=== PATIENT | male | born 1960 | race Caucasian/White ===

== ENCOUNTER 2018-01-18 08:47 | Inpatient (IN) | payer OTHER, SELFPAY ==
[2018-01-12 13:02] VITALS: BMI 28.1
[2018-01-18] VITALS (13 sets, daily range): BP systolic 113–147; BP diastolic 63–94; PULSE 57–82; RESP 12–20; TEMP 35.8–36.7; O2SAT 68–100; BMI 29.2
--- NOTE | 2018-01-18 | DI.RAD.S_ITS ---
PROCEDURE: XR PELVIS 1-2V INDICATIONS: LEFT TOTAL HIP INTEROPERATIVE TECHNIQUE: Intra-operative view of the pelvis and hip acquired. COMPARISON: [facility], [place], XR PELVIS WITH BILATERAL LATERAL HIPS, 12/29/2017, 10:34. FINDINGS: Bones: Intraoperative devices prior to placement of arthroplasty prostheses are in expected positions. No fractures or suspicious bony lesions. Soft tissues: Overlying surgical retractors are present, along with other intraoperative changes. IMPRESSION: Intraoperative image obtained during the patient's left hip arthroplasty. Dictated by: Heber Lacy M.D. on 01/18/2018 at 12:33 Approved by: Heber Lacy M.D. on 01/18/2018 at 12:34
--- NOTE | 2018-01-18 09:06 | DI.RAD.S_ITS ---
PROCEDURE: XR HIP W PEL IF DONE LT 2V INDICATIONS: prosthesis placement TECHNIQUE: 2 views of the hip were acquired. COMPARISON: [facility], CR, XR PELVIS 1-2V, 01/18/2018, 12:28. FINDINGS: Expected postoperative changes are identified related to left hip arthroplasty. The metallic prostatic components appear to be appropriately seated without periprostatic fracture evident. Surgical changes are present related to previous right hip arthroplasty. No suspicious osseous lesions are evident. Soft tissue changes overlying the left hip are evident related to recent surgery there is a soft tissue air and edema no unexpected radiopaque foreign bodies are evident. However, the entire soft tissues of the left thigh/gluteal region are not included on this exam. Surgical drainage catheter is incidentally noted overlying the left hip. IMPRESSION: Expected post surgical changes related to left hip arthroplasty. Dictated by: Heber Lacy M.D. on 01/18/2018 at 13:26 Approved by: Heber Lacy M.D. on 01/18/2018 at 13:27
[2018-01-18] MEDS: PREGABALIN 75 MG CAPSULE PO (09:41)
[2018-01-18] MEDS: CELECOXIB 200 MG CAPSULE PO (09:41)
[2018-01-18] MEDS: ACETAMINOPHEN 325 MG TABLET 975 MG PO ×3 (09:41→20:28)
[2018-01-18] MEDS: LACTATED RINGERS 1,000 ML 42 ML IV ×2 (09:44→12:05)
[2018-01-18] MEDS: VANCOMYCIN 1,000 MG/200 ML FROZ.PIGGY 200 MG IV ×2 (10:10→21:58)
--- NOTE | 2018-01-18 10:51 | PM.PREOP ---
Pre-operative Note Interval Note Pre-op Check: Yes History & Physical Reviewed by Physician and Yes Exam Performed Changes: No
--- NOTE | 2018-01-18 10:51 | PM.OP.1 ---
Operative Date/Time/Diagnoses Date of procedure: 01/18/18 Time of procedure: 11:51 Pre-op diagnosis: left hip OA Post-op diagnosis: same Procedure & Clinicians Procedure: Left total hip arthroplasty Same procedure as scheduled: Yes Indications: The patient has had progressively worsening left hip pain with radiographic changes consistent with arthritis. Non-operative management has failed and the patient has requested total hip replacement. The risks, benefits and alternatives to surgery were discussed with the patient prior to proceeding. Risks discussed included, but were not limited to, failure to relieve pain, leg length discrepancy, dislocation, stiffness, infection, nerve damage, deep venous thrombosis, pulmonary embolism, stroke, coma, heart attack, permanent paralysis and , as well as the potential need for eventual revision of the prosthetic. Surgeon: Blanka Menendez Labor And Delivery Nurse: Carolina Peralta Anesthesia Type: General and Spinal Operative Notes Findings: severe left hip osteoarthritis, good stability Closure Type: primary Specimen(s): none sent Implants & Drains: [employer]endez [employer]hew R3 54 cup, anthology size 6 standard offset, +4 by 36 femoral head Oxinium Applied: drain(s) Estimated Blood Loss (mL): 250 Blood products transfused: none Procedure in detail: The patient was seen in the pre-operative area, where the patient identified the left hip as the operative site and this was marked with my initials. The patient received pre-operative antibiotics and was taken to the operating room and placed on the operative table in the right lateral decubitus position after satisfactory anesthesia. A time piece repairer out was performed. The left leg was prepared from the ankle to the iliac crest with ChloroPrep in the usual fashion and draped through sterile drapes. The hip was approached through an approximately 20 cm incision centered over the greater trochanter and curving gently posteriorly as it went proximally. This was carried sharply to the fascia parveen, which was divided and retracted with a self retaining retractor. The trochanteric bursa was excised with care being taken to avoid the sciatic nerve, which was identified and protected throughout the case. The short external rotators were incised and the capsulomuscular flap was raised and tagged for later repair. The hip was dislocated, and a femoral neck osteotomy performed approximately 15 mm above the lesser trochanter. Retractors were placed around the femur. The canal was opened with a box cutting osteotome, followed by a T handled reamer and a lateralizing reamer. The chili pepper broach was then used, followed by sequential broaching until there was good stability of the broach in the femur. Retractors were placed to expose the acetabulum. The labrum and central soft tissues were removed. Reaming was performed initially going up in 2 mm increments, then 1 mm increments until good bite was obtained with an odd sized reamer. The cup 1 mm larger than the last reamer was then inserted using the appropriate anteversion guides. A trial neutral liner was placed. The broach was placed in the canal. A trial head and neck were then placed and the hip relocated and checked for leg length and stability. An intraoperative film confirmed the component position and no evidence of fracture. The patient was stable in the position of sleep, of squatting, and could be put through a range of motion with 45 degrees internal rotation without dislocation. At 90 degrees flexion, internal rotation to 70 was possible before dislocation. This was felt to be satisfactory and the appropriate components were opened, and the trials were removed. The acetabular liner was impacted into position. The final stem was then impacted into the prepared femoral canal. A brief Betadine soak was performed while trialing with head options. The hip was meticulously irrigated with normal saline. Finally the femoral head was impacted onto the stem. The acetabulum was cleared of all material and the hip relocated one final time. The capsulomuscular flap was then repaired to the greater trochanter though an awl hole using the tag sutures. The short external rotators were repaired with a black braided nylon. A deep drain was placed and brought out anteriorly. The fascia parveen was closed with black braided nylon. The subcutaneous layer was closed with barbed sutures and SteriStrips. An Aquacel Ag dressing was applied and the patient was taken to recovery having tolerated the procedure well. Complications: none Condition: stable Disposition: Acute Care Plan for aftercare: The patient will be maintained on a standard total hip replacement protocol with weight bearing as tolerated and posterior hip precautions. The patient will receive Aspirin and sequential compression devices for DVT prophylaxis. The patient will be discharged home when safe for the home environment.
[2018-01-18] MEDS: CLINDAMYCIN 900 MG/50 ML PIGGYBACK 50 MG IV (11:15)
--- NOTE | 2018-01-18 11:40 | SUR.OPER ---
Lateral on padded OR bed. Gel axillary roll. Arms secured on padded armboard with pillow supporting top arm. Padded hip positioner braces x4 - anterior and posterior chest and pelvis. Additional gel pad used anterior pelvis. Gel pad under bottom leg from knee to foot and secured with tape over sheet.
[2018-01-18] MEDS: BUPIVACAINE LIPOSOME 266 MG/20 ML VIAL INJ (11:50)
[2018-01-18] MEDS: BUPIVACAINE 0.25% W/ EPI VIAL 50 ML INJ (11:50)
[2018-01-18] MEDS: SODIUM CHLORIDE IRRIG SOLUTION 250 ML, EPINEPHrine 1 MG IRR (11:55)
[2018-01-18] MEDS: LACTATED RINGERS 1,000 ML 125 ML IV (15:52)
--- NOTE | 2018-01-18 17:36 | PT.IIE ---
Current Diagnoses Unilateral primary osteoarthritis, left hip (01/18/18) Surgery Performed Operation Date: 01/18/18 10:45 Actual Procedures p Total Hip Arthroplasty(Left) - Blanka Menendez MD Surgical History (Last Updated 01/12/18 @ 13:31 by Ailyn Khan, RN) History of arthroplasty of right knee (Acute ~2013) History of total right hip arthroplasty (Acute 05/05/16) Hx of hernia repair (Acute) Hx of tonsillectomy (Acute) S/P foot surgery, left (Acute) Medical History (Last Updated 01/12/18 @ 13:31 by Ailyn Khan, SARAY) Afib (Acute) HTN (hypertension) (Acute) Physical Therapy Inpatient Evaluation/Re-Eval M1 PT/OT-IP Prior Functional Status Start: 01/18/18 17:04 Freq: NEEDED Status: Active Protocol: Document 01/18/18 17:04 EA (Rec: 01/18/18 17:33 EA [id number]) Medical Review Prior Functional Status Medical History Reviewed Yes Diet/Fluid Consistency Regular Communication Normal Mobility and Gait Ambulates more than two blocks independently with no AD used . No fall in the past six months Activities of Daily Living and IADL's Indep in all KILN TESTER Social History Household Members spouse Living Arrangements House Number of Floors (Floors) One Floor Number of Stairs To Enter/Railing? 7 steps to get in the house with railings to both sides Home Equipment Front Wheel Walker Straight Cane Raised Toilet Seat w/Armrests Additional Social History Comment On medical leave due to left foot surgery in 2016; patient reports cleared to FWB status after the removal of nails a months ago. M2 PT-IP Current Condition Start: 01/18/18 17:04 Freq: NEEDED Status: Active Protocol: Document 01/18/18 17:04 EA (Rec: 01/18/18 17:33 EA [id number]) Physical Therapy Current Condition Current Condition Evaluation Date 01/18/18 Treatment Diagnosis s/p L SARAH Onset Date 01/18/18 Precautions Posterior Hip Precautions No Hip Flexion > 90 degrees No Hip Internal Rotation No Hip Adduction Weight Bearing Status Weight Bearing Status Weight Bear as Tolerated M3 PT-IP Subjective Start: 01/18/18 17:04 Freq: NEEDED Status: Active Protocol: Document 01/18/18 17:04 EA (Rec: 01/18/18 17:33 EA [id number]) Subjective Physical Therapy Visit Type Type Initial Evaluation Visit Start Time 16:30 Visit Stop Time 17:10 Total Visit Minutes 40 Number of KILN TESTER Visits 0 Physical Therapy Visit Comments Patient Comments Patient reports he wants be independent in all functional transfers and mobility prior discharge. Pt agreeable to transfers to chair for dinner. Patient Goals Indep in all functional transfers and mobility Therapy Pain Assessment Pain When Pain Assessed At Rest Pain Present Pain Present Pain Reported Location Left Knee Intensity 3 Scale Used Numeric (1 - 10) Description Acute M4 PT-IP Mobility and Gait Start: 01/18/18 17:04 Freq: NEEDED Status: Active Protocol: Document 01/18/18 17:04 EA (Rec: 01/18/18 17:33 EA [id number]) PT-Bed Mobility Assessment Supine to Sit Supine to Sit Standby Assistance Sit to Supine Sit to Supine Standby Assistance Scooting Scooting to Edge of Bed Contact Guard Assistance PT-Transfer Assessment Sit to and From Stand Sit to and from Stand Contact Guard Assistance Transfers Transfer Destination Bed Chair Transfer Technique stepping Transfer Ability Level of Assist Contact Guard Assistance Gait Assessment Gait Gait Assistance Required: Standby Assistance Distance (Feet) 6 Assistive Devices Assistive Device Front Wheeled Walker Gait Deviations General Gait Pattern Antalgic Decreased Stride Length Factors Limiting Gait Function Factors Limiting Gait Function Decreased Activity Tolerance Decreased Strength Pain PT-Balance Assessment Sitting Balance and Reactions Static Sitting Balance Ability Normal Dynamic Sitting Balance Ability Good Standing Balance and Reactions Static Standing Balance Ability Good Dynamic Standing Balance Ability Fair M5 PT-IP Objective Assessments Start: 01/18/18 17:04 Freq: NEEDED Status: Active Protocol: Document 01/18/18 17:04 EA (Rec: 01/18/18 17:33 EA [id number]) Orientation Orientation/Cognition Level of Alertness Alert Orientation Name Age Date Year Day of Week Place Situation Language Function Ability No Deficits Noted Safety Awareness Understands Safety Issues Gross Range of Motion Upper Extremity ROM Assessment Within Functional Limits Lower Extremity ROM Assessment Left Impaired Impairments Left hip N/A due to hip precaution but WFL on preferred position Strength Upper Extremity Strength Assessment Within Functional Limits Lower Extremity Strength Hip N/A due to hip precaution but with at least 3/5 M6 PT-IP Treatment Start: 01/18/18 17:04 Freq: NEEDED Status: Active Protocol: Document 01/18/18 17:04 EA (Rec: 01/18/18 17:33 EA [id number]) Physical Therapy Treatment Exercises Exercises Ankle Pumps Gluteal Sets Quad Sets Heel Slides Supine Hip Abduction Education Education Provided Precautions Weight Bearing Status Post-Op Packet Safety M7 PT-IP Assessment and Plan Start: 01/18/18 17:04 Freq: NEEDED Status: Active Protocol: Document 01/18/18 17:04 EA (Rec: 01/18/18 17:33 EA [id number]) PT Summary Assessment and Plan Potential Rehabilitation Potential Excellent Status of Condition at Evaluation Stable Summary Impairments Pain Strength Bed Mobility Transfers Gait Activity Tolerance Progress Towards Goals Progressing Toward Goals Assessment Summary Patient demonstrates decreased tolerance to transfers and mobility due to pain and weakness to LLE. Patient requires assistance in transfers and mobility for safety. Patient would benefit with skilled PT to reach indep functional level prior to discharge. Goals Bed Mobility Goal Independent Transfer Goal Independent Gait Goal Independent Gait Distance 100 ft Other Goals Indep in 7 steps of stair with use railings with cane. Days to Meet Goals 2 Frequency of Treatment Frequency Of Treatment Twice a Day Treatment Plan Physical Therapy Treatment Plan Bed Mobility Training Transfer Training Gait Training Therapeutic Exercise Post Op Education Discharge Planning Hot or Cold Pack Manual Therapy Recommendations To Nursing Amount of Assist Needed 1 Person Assist Discharge Recommendations PT Discharge Recommendations Home Home with Assistance Outpatient PT
[2018-01-18] MEDS: NAPROXEN 250 MG TABLET 500 MG PO (18:05)
[2018-01-18] MEDS: OXYCODONE IR 10 MG TABLET PO ×2 (18:05→23:01)
[2018-01-18] MEDS: diphenhydrAMINE 50 MG/ML VIAL 25 MG IV (18:11)
[2018-01-18] MEDS: ASPIRIN EC 81 MG TABLET PO (20:28)
[2018-01-18] MEDS: DOCUSATE 100 MG CAPSULE PO (20:28)
[2018-01-19] VITALS: BP 141/72; PULSE 66; RESP 20; TEMP 36.7; O2SAT 97
[2018-01-19] MEDS: diphenhydrAMINE 50 MG/ML VIAL 25 MG IV (01:04)
[2018-01-19] MEDS: LACTATED RINGERS 1,000 ML 125 ML IV (01:09)
--- NOTE | 2018-01-19 01:13 | PC.NURSE ---
C/O pruritus requested & administered .25 mg. of Benadryl IVP . Will monitor
[2018-01-19] MEDS: OXYCODONE IR 10 MG TABLET PO ×5 (03:21→22:07)
[2018-01-19 05:03] VITALS: BP 141/79; PULSE 53; RESP 16; TEMP 36.6; O2SAT 95
[2018-01-19 06:25] LABS: Hematocrit 37.8 % (41-53); Hemoglobin 12.6 g/dL (13.5-17.5)
[2018-01-19 08:00] VITALS: BP 136/77; PULSE 54; RESP 16; TEMP 36.4; O2SAT 97
[2018-01-19] MEDS: NAPROXEN 250 MG TABLET 500 MG PO ×2 (08:26→17:16)
[2018-01-19] MEDS: DOCUSATE 100 MG CAPSULE PO ×2 (08:26→21:03)
[2018-01-19] MEDS: ASPIRIN EC 81 MG TABLET PO ×2 (08:26→21:03)
[2018-01-19] MEDS: AMLODIPINE 5 MG TABLET 10 MG PO (08:26)
[2018-01-19] MEDS: ACETAMINOPHEN 325 MG TABLET 975 MG PO ×3 (08:26→21:03)
[2018-01-19 08:27] VITALS: BP 122/76; PULSE 60
[2018-01-19] MEDS: LISINOPRIL 20 MG TABLET 40 MG PO (08:27)
[2018-01-19] MEDS: hydroCHLOROthiazide 25 MG TABLET 50 MG PO (08:27)
[2018-01-19 08:30] VITALS: BP 122/76; PULSE 60; RESP 16; TEMP 36.6; O2SAT 97
--- NOTE | 2018-01-19 09:25 | PT.IPTN ---
Current Diagnoses Unilateral primary osteoarthritis, left hip (01/18/18) Surgery Performed Operation Date: 01/18/18 10:45 Actual Procedures p Total Hip Arthroplasty(Left) - Blanka Menendez MD Physical Therapy Treatment Note M2 PT-IP Current Condition Start: 01/18/18 17:04 Freq: NEEDED Status: Active Protocol: Document 01/18/18 17:04 EA (Rec: 01/18/18 17:33 EA [id number]) Physical Therapy Current Condition Current Condition Evaluation Date 01/18/18 Treatment Diagnosis s/p L SARAH Onset Date 01/18/18 Precautions Posterior Hip Precautions No Hip Flexion > 90 degrees No Hip Internal Rotation No Hip Adduction Weight Bearing Status Weight Bearing Status Weight Bear as Tolerated M3 PT-IP Subjective Start: 01/18/18 17:04 Freq: NEEDED Status: Active Protocol: Document 01/19/18 09:25 GGD (Rec: 01/19/18 11:04 GGD [id number]) Subjective Physical Therapy Visit Type Type Treatment Note Visit Start Time 09:00 Visit Stop Time 09:25 Total Visit Minutes 25 Number of ANIMAL SHELTER CLERK Visits 1 Physical Therapy Visit Comments Patient Comments Pt states that he would like to go back to bed. Therapy Pain Assessment Pain When Pain Assessed At Rest Pain Present Pain Present Pain Reported Location Left Knee Intensity 3 Scale Used Numeric (1 - 10) M4 PT-IP Mobility and Gait Start: 01/18/18 17:04 Freq: NEEDED Status: Active Protocol: Document 01/19/18 09:25 GGD (Rec: 01/19/18 11:04 GGD [id number]) PT-Bed Mobility Assessment Sit to Supine Sit to Supine Standby Assistance Scooting Scooting to Edge of Bed Standby Assistance PT-Transfer Assessment Sit to and From Stand Sit to and from Stand Contact Guard Assistance Equipment Transfer Assistive Device Gait Belt Front Wheeled Walker Orthotic/Prosthetic Devices or Brace: No Transfers Transfer Destination Bed Transfer Ability Level of Assist Contact Guard Assistance Gait Assessment Gait Gait Assistance Required: Standby Assistance Contact Guard Assist Distance (Feet) 220 Able to Maintain Weight Bearing Status Yes During Gait Assistive Devices Assistive Device Gait Belt Front Wheeled Walker Orthotic/Prosthetic Devices or Brace: No Gait Deviations General Gait Pattern Antalgic Decreased Stride Length Factors Limiting Gait Function Factors Limiting Gait Function Decreased Activity Tolerance Decreased Strength Pain M5 PT-IP Objective Assessments Start: 01/18/18 17:04 Freq: NEEDED Status: Active Protocol: Document 01/18/18 17:04 EA (Rec: 01/18/18 17:33 EA [id number]) Orientation Orientation/Cognition Level of Alertness Alert Orientation Name Age Date Year Day of Week Place Situation Language Function Ability No Deficits Noted Safety Awareness Understands Safety Issues Gross Range of Motion Upper Extremity ROM Assessment Within Functional Limits Lower Extremity ROM Assessment Left Impaired Impairments Left hip N/A due to hip precaution but WFL on preferred position Strength Upper Extremity Strength Assessment Within Functional Limits Lower Extremity Strength Hip N/A due to hip precaution but with at least 3/5 M6 PT-IP Treatment Start: 01/18/18 17:04 Freq: NEEDED Status: Active Protocol: Document 01/19/18 09:25 GGD (Rec: 01/19/18 11:04 GGD [id number]) Physical Therapy Treatment Exercises Exercises Ankle Pumps Gluteal Sets Quad Sets Heel Slides Supine Hip Abduction Education Education Provided Precautions M7 PT-IP Assessment and Plan Start: 01/18/18 17:04 Freq: NEEDED Status: Active Protocol: Document 01/19/18 09:25 GGD (Rec: 01/19/18 11:04 GGD [id number]) PT Summary Assessment and Plan Summary Assessment Summary Pt improving with bed mobility . He was able to progress gait distance without increase in pain. He was safe and stable with gait. He was SBA for bed mobility. He safe for home D/C when medically stable. Frequency of Treatment Frequency Of Treatment Twice a Day Treatment Plan Physical Therapy Treatment Plan Bed Mobility Training Transfer Training Gait Training Therapeutic Exercise Post Op Education Discharge Planning Hot or Cold Pack Manual Therapy Recommendations To Nursing Amount of Assist Needed 1 Person Assist Discharge Recommendations PT Discharge Recommendations Home with Assistance Outpatient PT
--- NOTE | 2018-01-19 11:42 | PM.PNPO.1 ---
Subjective Date Patient Seen: 01/19/18 Time Patient Seen: 11:42 Interval history: Hospital day 2, postop day 1 following left total hip arthroplasty. Patient is still having noticeable discharge from his Hemovac over 100 mL. He has been up with physical therapy. He does not have any transportation to his home this time or anyone to help him. Exam Vital Signs (past 8 hours): - 01/19/18 05:03 01/19/18 08:27 01/19/18 08:30 Temperature 97.9 F 97.9 F Pulse Rate 53 L 60 60 Respiratory Rate 16 16 Blood Pressure 141/79 H 122/76 122/76 Pulse Oximetry 95 97 Oxygen Delivery Method Room Air Oxygen Flow Rate 0 Narrative Exam Narrative: Alert, oriented in no acute distress. Left leg. Aquacel dressing is dry without drainage or inflammation. Hemovac in place with drainage. No calf pain or swelling. Objective Labs Result Diagrams: 01/19/18 05:55 Labs: Laboratory Results - last 24 hr 01/19/18 05:55 Hgb 12.6 L Hct 37.8 L Assessment & Plan Post-op Postoperative Procedures Operation Date: 01/18/18 10:45 Actual Procedures Side Surgeon p Total Hip Arthroplasty Left Blanka Menendez MD Plan: Will cancel discharge order for today. Keep the Hemovac in until drainage decreased. Patient will work with physical therapy today. Anticipate discharge home tomorrow. He will start physical therapy at [facility] in [place] on 01/22/2018.
--- NOTE | 2018-01-19 14:20 | PT.IPTN ---
Current Diagnoses Unilateral primary osteoarthritis, left hip (01/18/18) Surgery Performed Operation Date: 01/18/18 10:45 Actual Procedures p Total Hip Arthroplasty(Left) - Blanka Menendez MD Physical Therapy Treatment Note M2 PT-IP Current Condition Start: 01/18/18 17:04 Freq: NEEDED Status: Active Protocol: Document 01/18/18 17:04 EA (Rec: 01/18/18 17:33 EA [id number]) Physical Therapy Current Condition Current Condition Evaluation Date 01/18/18 Treatment Diagnosis s/p L SARAH Onset Date 01/18/18 Precautions Posterior Hip Precautions No Hip Flexion > 90 degrees No Hip Internal Rotation No Hip Adduction Weight Bearing Status Weight Bearing Status Weight Bear as Tolerated M3 PT-IP Subjective Start: 01/18/18 17:04 Freq: NEEDED Status: Active Protocol: Document 01/19/18 14:20 GGD (Rec: 01/19/18 16:31 GGD [id number]) Subjective Physical Therapy Visit Type Type Treatment Note Visit Start Time 13:55 Visit Stop Time 14:20 Total Visit Minutes 25 Number of BOTTLE ASSEMBLER Visits 2 Physical Therapy Visit Comments Patient Comments Pt states he willing to work with therapy. Therapy Pain Assessment Pain When Pain Assessed At Rest Pain Present Pain Present Pain Reported Location Left Knee Intensity 3 Scale Used Numeric (1 - 10) M4 PT-IP Mobility and Gait Start: 01/18/18 17:04 Freq: NEEDED Status: Active Protocol: Document 01/19/18 14:20 GGD (Rec: 01/19/18 16:31 GGD [id number]) PT-Bed Mobility Assessment Sit to Supine Sit to Supine Standby Assistance Scooting Scooting to Edge of Bed Standby Assistance PT-Transfer Assessment Sit to and From Stand Sit to and from Stand Contact Guard Assistance Equipment Transfer Assistive Device Gait Belt Front Wheeled Walker Orthotic/Prosthetic Devices or Brace: No Transfers Transfer Destination Bed Transfer Ability Level of Assist Contact Guard Assistance Gait Assessment Gait Gait Assistance Required: Standby Assistance Contact Guard Assist Distance (Feet) 220 Able to Maintain Weight Bearing Status Yes During Gait Assistive Devices Assistive Device Gait Belt Front Wheeled Walker Orthotic/Prosthetic Devices or Brace: No Gait Deviations General Gait Pattern Antalgic Decreased Stride Length Factors Limiting Gait Function Factors Limiting Gait Function Decreased Activity Tolerance Decreased Strength Pain Stair Climbing Assessment Evaluation Level of Assist On Stairs Standby Assistance Devices Stair Climbing Assistive Devices Right Railing Technique/Endurance Stair Climbing Direction Ascend and Descend Stair Climbing Technique Step to Step Number of Steps Climbed 3 Query Text: Stair Climbing Set # Repetitions (reps) 1 M5 PT-IP Objective Assessments Start: 01/18/18 17:04 Freq: NEEDED Status: Active Protocol: Document 01/18/18 17:04 EA (Rec: 01/18/18 17:33 EA [id number]) Orientation Orientation/Cognition Level of Alertness Alert Orientation Name Age Date Year Day of Week Place Situation Language Function Ability No Deficits Noted Safety Awareness Understands Safety Issues Gross Range of Motion Upper Extremity ROM Assessment Within Functional Limits Lower Extremity ROM Assessment Left Impaired Impairments Left hip N/A due to hip precaution but WFL on preferred position Strength Upper Extremity Strength Assessment Within Functional Limits Lower Extremity Strength Hip N/A due to hip precaution but with at least 3/5 M6 PT-IP Treatment Start: 01/18/18 17:04 Freq: NEEDED Status: Active Protocol: Document 01/19/18 14:20 GGD (Rec: 01/19/18 16:31 GGD [id number]) Physical Therapy Treatment Exercises Exercises Ankle Pumps Gluteal Sets Quad Sets Heel Slides Supine Hip Abduction Education Education Provided Precautions M7 PT-IP Assessment and Plan Start: 01/18/18 17:04 Freq: NEEDED Status: Active Protocol: Document 01/19/18 14:20 GGD (Rec: 01/19/18 16:31 GGD [id number]) PT Summary Assessment and Plan Summary Assessment Summary Pt improving with mobility. He safe and stable with gait and stair mobility. He had no LOB with FWW. He able to recall hip precautions. He is safe for D/C home when medically stable. Frequency of Treatment Frequency Of Treatment Twice a Day Treatment Plan Physical Therapy Treatment Plan Bed Mobility Training Transfer Training Gait Training Therapeutic Exercise Post Op Education Discharge Planning Hot or Cold Pack Manual Therapy Recommendations To Nursing Amount of Assist Needed 1 Person Assist Discharge Recommendations PT Discharge Recommendations Home with Assistance Outpatient PT
[2018-01-19 16:19] VITALS: BP 101/96; PULSE 68; RESP 18; TEMP 36.8; O2SAT 96
[2018-01-20] VITALS: BP 121/67; PULSE 60; RESP 18; TEMP 36.7; O2SAT 97
[2018-01-20] MEDS: OXYCODONE IR 10 MG TABLET PO ×3 (02:12→11:04)
--- NOTE | 2018-01-20 06:54 | PC.NURSE ---
HV Dc'd only drained 7 cc. Tolerated procedure well, no C/O pain. HV site without any erythema & no bleeding noted. Will cont. POC & monitor.
--- NOTE | 2018-01-20 07:34 | PM.DS.1 ---
History of Present Illness Date Patient Seen: 01/20/18 Time Patient Seen: 07:38 Chief complaint: [id number] Narrative: Patient is seen bedside status post left posterior SARAH on 01/18/[address] Menendez. Patient is postop day 2. He is doing well ambulating the halls on his own and he has been cleared by physical therapy. Denies chest pain shortness of breath and calf pain. No numbness and tingling. Discharge Providers Date of admission: 01/18/18 08:47 Consults: 01/12/18 13:40 Consult to Computational Mathematician Routine Comment: 01/18/18 09:06 Consult to Anesthesiology Routine Comment: Consulting Provider: Anesthesiologist Reason for consultation: Regional block for post operative pain control 01/18/18 15:04 Consult to Discharge Planning Routine Comment: Consult to Physical Therapy Evaluate & Treat Comment: Physician Instructions: post op SARAH protocol Consult to Respiratory Therapy Evaluate & Treat Comment: Physician Instructions: Evaluate and treat Discharge provider: Carolina Peralta PA-C Discharge Date: 01/20/18 Summary Discharge Diagnosis: Left hip osteoarthritis Hospital Course: Patient admitted to the hospital status post left total hip replacement with Dr. Menendez on 01/18/2018. Patient tolerated the procedure well with no major complications. Patient was placed on the standard replacement pathway protocol. Patient was seen by Physical therapy who recommended that the patient be discharged home with outpatient PT. Patient was stable and ready for discharge on 01/20/2018. Status at Discharge Cognitive/behavioral status at discharge: Alert and oriented x4 Functional status at discharge: uses cane/walker Time Spent with Patient Less than 30 minutes Exam Vital Signs (past 8 hours): - 01/19/18 00:00 01/19/18 05:03 Temperature 98.1 F 97.9 F Pulse Rate 66 53 L Respiratory Rate 20 16 Blood Pressure 141/72 H 141/79 H Pulse Oximetry 97 95 Oxygen Delivery Method Room Air Oxygen Flow Rate 0 Narrative Exam Narrative: Well-developed well-nourished in no acute distress. Alert and oriented x3. Surgical dressing on left hip is clean dry and intact. He is NVI in the left lower extremity. Calf is soft and compressible. Objective Labs Result Diagrams: 01/19/18 05:55 Labs: Laboratory Results - last 24 hr 01/19/18 05:55 Hgb 12.6 L Hct 37.8 L Discharge Plan Discharge Plan Patient Disposition: Home Discharge comment: d/c if cleared by PT and has ride home Discharge Med Rec/Prescriptions Prescriptions: New acetaminophen 325 mg Tablet 975 mg PO TID Qty: 0 RF: 0 aspirin 81 mg Tablet,Delayed Release (Dr/Ec) 81 mg PO BID Qty: 0 RF: 0 docusate sodium 100 mg Capsule 100 mg PO BID Qty: 0 RF: 0 oxycodone 5 mg Tablet 5 mg PO Q3HR PRN (Reason: Pain, Moderate (4-6)) Qty: 0 RF: 0 Continue hydrochlorothiazide 50 MG tablet 50 mg PO QDAY Qty: 0 RF: 0 amlodipine [Norvasc] 5 MG tablet 10 mg PO QDAY Qty: 0 RF: 0 lisinopril 40 MG tablet 40 mg PO QDAY Qty: 0 RF: 0 naproxen sodium [Aleve] 220 MG tablet 2 tab PO BIDCC Qty: 0 RF: 0 Discontinued aspirin 81 MG tablet,delayed release (DR/EC) 81 mg PO DAILY RF: 0 Follow up/Referrals: Blanka Menendez MD [Physician] - (Follow up at the office at your previously scheduled post-op appointment.) Provider Discharge Instructions Diet: Diet as Tolerated Activity: Weightbearing as tolerated, use walker until cleared by PT. Follow posterior hip precautions Cold/Heat Therapy: Apply ice 20 minutes at a time at least hourly while awake Skin/Wound/Dressing Care Report to your healthcare provider any signs of infection, such as:: chills, fever, night sweats, increased pain, unusual drainage and unusual redness Dressing: Keep dressing clean, dry, and intact. May shower with dressing intact. Visit Report/Discharge Packet Instructions: DI for Hip Replacement, Oxycodone Visit Report Forms: Stroke Signs & Symptoms Discharge Data Attending Provider: Blanka Menendez Admit Date/Time: 01/18/18 08:47
--- NOTE | 2018-01-20 07:59 | PC.NURSE ---
Addendum entered by Tiesha Barreto R.N. 01/20/18 08:59: PT has cleared Pt already, and Pt declines any further therapy this AM before D/c. Original Note: Am nurse note A/o x3, eager to d/c home today. Hemovac out and dressing is CDI, aquacell CDI. Ice pack in place. Pain managed, arriving After breakfast, d/c teaching reviewed. Pt has prior hip sx and familiar with restrictions, POC.
[2018-01-20 08:00] VITALS: BP 145/75; PULSE 64; RESP 18; TEMP 36.5; O2SAT 98
[2018-01-20] MEDS: AMLODIPINE 5 MG TABLET 10 MG PO (08:05)
[2018-01-20] MEDS: NAPROXEN 250 MG TABLET 500 MG PO (08:06)
[2018-01-20] MEDS: ACETAMINOPHEN 325 MG TABLET 975 MG PO (08:06)
[2018-01-20] MEDS: ASPIRIN EC 81 MG TABLET PO (08:07)
[2018-01-20] MEDS: hydroCHLOROthiazide 25 MG TABLET 50 MG PO (08:07)
[2018-01-20] MEDS: LISINOPRIL 20 MG TABLET 40 MG PO (08:07)
--- NOTE | 2018-01-20 14:58 | CM.IDA ---
Discharge Planning/Care Management CM Discharge Assessment Start: 01/20/18 14:55 Freq: Status: Discharge Protocol: Document 01/20/18 14:55 DONNY (Rec: 01/20/18 14:58 DONNY [id number]) Discharge Planning Assessment Assigned Supervisor [employer] JHOAN Richardson DPOA/Assigned Designee Name Parrish Kang, spouse Contact Information [phone] Advance Directives? No: Declines further information Prior Living Arrangements House Household Members spouse Type of transporation used prior to Drives own vehicle admit Independent with ADL's Yes Is patient alert and oriented? Yes Comment Indp and active at baseline. Lives in [place]. Barriers to Discharge No Comment Met w/pt today, explained role . Pt eager to return home today and explains he had the same surgery a year ago and has all the DME needed for safe DC home. PT cleared pt for safe return home. Discharge Plan Home Transportation Arrangement Family Referrals Initiated None needed Whiteboard Updated in Patient Room with Yes name and ext. # of Supervisor [employer] Processing Review Status In Process
== END 2018-01-20 11:00 | disposition home or self-care (01) | DRG 470 ==
PROVIDERS: Admitting Provider Orthopaedic Surgery; Visit Provider Orthopaedic Surgery
PROC: 0SRB0JZ Replacement of Left Hip Joint with Synthetic Substitute, Open Approach (ICD-10-PCS; CPT 27130; principal; 2018-01-18 10:45)
DX: M16.12 Unilateral primary osteoarthritis, left hip (principal); I10 Essential (primary) hypertension; Z96.641 Presence of right artificial hip joint; I48.0 Paroxysmal atrial fibrillation; E78.5 Hyperlipidemia, unspecified
CPT/HCPCS: 36415; 72170; 73502; 85014; 85018; 97116; 97530; 97535; C1776; C9290; J0171; J1100; J1200; J2250; J2274; J2405; J2704; J3010; J3370